=== PATIENT | male | born 1965 | race American Indian/Alaskan Native ===

== ENCOUNTER 2021-07-08 01:39 | Emergency (ER) | payer SELFPAY ==
[2021-07-08] MEDS ORDERED: ZIPRASIDONE MESYLATE 20 MG VIAL IM ONE (02:41)
--- NOTE | 2021-07-08 02:55 | Emergency Department Report ---
ED Psych HPI - General Chief Complaint: Psych Stated Complaint: MEDICAL Time Seen by Provider: 07/08/21 02:41 Source: patient Mode of arrival: Ambulatory - History of Present Illness Initial Comments: Patient is a 56-year-old male who presents emergency room for medical. Patient states his sister wants her to be checked out. Patient states his thoughts are racing. Patient denies suicidal homicidal ideations. Patient states that he is retired but is starting to work. Patient states that he has been running around and is looking for [employer]. Patient states that the family is always watching him. Patient denies recent travel. Patient denies recent international travel. Patient denies exposure to the novel coronavirus. Patient denies sick contacts. Patient denies fever and chills. Patient denies cough. Patient denies diarrhea. Patient denies coming in contact with anybody with symptoms of the novel coronavirus. MD Complaint: altered mental status -: Sudden Associated Psychiatric Symptoms: racing thoughts History of same: No Quality: constant Improves With: none Worsens With: none - Related Data Home Medications Medication Instructions Recorded Confirmed Last Taken Unobtainable 07/09/21 07/09/21 Unknown Allergies Allergy/AdvReac Type Severity Reaction Status Date / Time No Known Allergies Allergy Verified 07/09/21 08:12 ED Review of Systems ROS: Stated complaint: MEDICAL Other details as noted in HPI Comment: All other systems reviewed and negative ED Past Medical Hx - Past Medical History Previous Medical History?: Yes Hx Psychiatric Treatment: Yes - Surgical History Past Surgical History?: Yes - Family History Family history: no significant - Social History Smoking Status: Never Smoker Substance Use Type: None - Medications Home Medications: Home Medications Medication Instructions Recorded Confirmed Last Taken Type Unobtainable 07/09/21 07/09/21 Unknown History ED Physical Exam - General Limitations: Altered Mental Status General appearance: alert, in no apparent distress - Head Head exam: Present: atraumatic, normocephalic - Eye Eye exam: Present: normal appearance - ENT ENT exam: Present: mucous membranes moist - Neck Neck exam: Present: normal inspection - Respiratory Respiratory exam: Present: normal lung sounds bilaterally. Absent: respiratory distress - Cardiovascular Cardiovascular Exam: Present: regular rate, normal rhythm. Absent: systolic murmur, diastolic murmur, rubs, gallop - GI/Abdominal GI/Abdominal exam: Present: soft, normal bowel sounds - Rectal Rectal exam: Present: deferred - Extremities Exam Extremities exam: Present: normal inspection - Back Exam Back exam: Present: normal inspection - Neurological Exam Neurological exam: Present: alert, oriented X3 - Expanded Psychiatric Exam Expanded Focused psych exam: Present: pressured speech, echolalia, delusional, restlessness, flight of ideas - Skin Skin exam: Present: warm, dry, intact, normal color. Absent: rash ED Course Vital Signs 07/08/21 07/08/21 07/09/21 01:47 03:34 08:21 Temperature 97.5 F L 97.2 F L Pulse Rate 119 H 73 Respiratory 20 18 Rate Blood Pressure 156/84 120/72 Blood Pressure 120/72 [Left] O2 Sat by Pulse 99 100 98 Oximetry 07/09/21 07/10/21 07/10/21 19:31 07:47 08:43 Temperature 97.7 F Pulse Rate 73 Respiratory 20 Rate Blood Pressure Blood Pressure 147/106 [Left] O2 Sat by Pulse 97 100 100 Oximetry 07/10/21 07/11/21 07/11/21 19:48 01:42 07:55 Temperature 98.3 F 98.2 F 98.8 F Pulse Rate 119 H 102 H 74 Respiratory 20 18 20 Rate Blood Pressure Blood Pressure 135/94 139/90 137/67 [Left] O2 Sat by Pulse 98 96 99 Oximetry 07/11/21 07/11/21 07/11/21 08:50 19:50 20:28 Temperature 98.2 F Pulse Rate 119 H Respiratory 20 Rate Blood Pressure Blood Pressure 136/86 [Left] O2 Sat by Pulse 99 98 99 Oximetry 07/11/21 07/12/21 07/12/21 22:00 08:34 09:36 Temperature 98.7 F Pulse Rate 109 H 122 H Respiratory 18 Rate Blood Pressure Blood Pressure 128/72 [Left] O2 Sat by Pulse 97 97 Oximetry 07/12/21 12:33 Temperature Pulse Rate 97 H Respiratory Rate Blood Pressure Blood Pressure 124/60 [Left] O2 Sat by Pulse 98 Oximetry - Reevaluation(s) Reevaluation #1: Patient placed on a ER hold. 07/08/21 03:01 Reevaluation #2: Patient is agitated. Patient is moving nonstop. Patient was placed in seclusion room. Patient was given Geodon. [id number] done. 10/09/21 04:40 Reevaluation #3: Patient is medically cleared. Patient will remain in the ER as an ER hold. 07/08/21 04:48 ED Medical Decision Making - Lab Data Result diagrams: 07/08/21 03:23 07/08/21 03:23 - Medical Decision Making Patient is a 56-year-old male who presents emergency room for mental health complaints. Patient found to be in acute psychosis. Patient is tangential and pressured speech. Patient has multiple features of acute psychosis. Patient after evaluation became restless and agitated. Patient placed in seclusion and given Geodon. Patient had labs done which were essentially unremarkable except for renal insufficiency. Patient is medically cleared. Patient not require inpatient services. Patient spinal disposition will come from our psychiatry te am. Patient's final clearance will come from our psychiatry team. Patient remained in the ER as an ER hold until cleared by the psychiatry team. - Differential Diagnosis Medical clearance, acute psychosis, Critical care attestation.: If time is entered above; I have spent that time in minutes in the direct care of this critically ill patient, excluding procedure time. ED Disposition Clinical Impression: Renal insufficiency, Dehydration, Acute psychosis Disposition: [address] [place] [id number] Is pt being admited?: No Does the pt Need Aspirin: No Condition: Stable Referrals: PRIMARY CARE, [Primary Care Provider] - 3-5 Days Time of Disposition: 04:48
[2021-07-08 03:55] LABS: Hemoglobin 14.1 gm/dl (11.8-15.2)
[2021-07-08 03:56] LABS: Calcium 10.2 mg/dL (8.4-10.2)
[2021-07-08 04:05] LABS: Hematocrit 40.3 % (35.5-45.6); Mean Corpuscular HGB Conc 35 % (32-34); Mean Corpuscular Volume 101 fl (84-94); Platelet Count 298 K/mm3 (140-440); Red Cell Distribution Width 13.6 % (13.2-15.2)
[2021-07-08 08:05] LABS: Total Cells Counted 100
[2021-07-08 08:06] LABS: Anisocytosis Few; Macrocytosis Few
[2021-07-08 09:51] LABS: Bilirubin,Urine NEG (Negative); Blood,Urine NEG (Negative); Color,Urine Yellow (Yellow); Mucus,Urine FEW /HPF; Protein,Urine <15 mg/dL mg/dL (Negative); Urobilinogen,Urine < 2.0 mg/dL (<2.0); WBC,Urine < 1.0 /HPF (0.0-6.0)
[2021-07-08 09:58] LABS: Benzodiazepines Screen,Urine Negative; Cannabinoid Screen,Urine Negative; Cocaine Screen,Urine Negative; Methadone Screen,Urine Negative; Opiate Screen,Urine Negative
[2021-07-08 10:39] LABS: Amphetamine Screen,Urine Positive
--- NOTE | 2021-07-08 10:51 | Event Note ---
Date: 07/08/21 S: Patient reported to be exhibiting erratic behavior overnight. Patient refused vital signs this morning. O: Vital Signs - 8 hr 07/08/21 03:34 Temperature 97.2 F L Pulse Rate 73 Respiratory 18 Rate Blood Pressure 120/72 Blood Pressure 120/72 [Left] O2 Sat by Pulse 100 Oximetry A: Acute psychosis P: Awaiting evaluation/inpatient psych
--- NOTE | 2021-07-08 11:00 | Consultation ---
History of Present Illness - Reason for Consult Consult date: 07/08/21 Reason for consult: psychosis - History of Present Psychiatric Illness Per Nurse Note: Patient noted screaming making all sorts of sounds and yelling out profanities. Disorganized thoughts noted. Remains in seclusion. Q 15 min checks continues. Ed Paulson is a 56y/o patient who was seen today. He is acutely psychotic. His thoughts are disorganized. The patient is difficulty to follow and having flight of ideas. He tells me that he was "hearing stuff in my house, ceiling fan shon ing." He then says "my daughter told me she wants a purple dildo in her butt." He then says "I told her she must not be my daughter." He then says his daughter cut up his clothes. The patient says "my sister brought me here. She is an alpha well female." He is going on nonsensically. He says "Trump got bumped." He denies SI/HI PAST PSYCHIATRIC HISTORY: Diagnoses: Bipolar Suicide attempts or Self-harm behavior: Denies Prior psychiatric hospitalizations:Yes Substance Abuse history: Denies, but positive for amphetamines Previous psychiatric medications tried: Seroquel Outpatient treatment: Yes PAST MEDICAL HISTORY: None reported or document Family Psychiatric History: None reported or documented SOCIAL HISTORY Marital Status: Single Living Arrangements: with sister Employment Status: Unemployed Access to guns/weapons: Denies Education:some History of Abuse: Denies Legal History: unknown REVIEW OF SYSTEMS Constitutional: Negative for weight loss ENT: Negative for stridor Respiratory: Negative for cough or hemoptysis All other systems reviewed and are negative MENTAL STATUS EXAMINATION General Appearance and Behavior: Age appropriate, good hygiene, wearing appropriate clothes. Cooperation: Cooperative Psychomotor Behavior: Psychomotor normal Mood: Affect and affective range: Congruent with stated mood Thought Process: disorganized, flight of ideas Thought Content: hallucinations Speech: nonsensical Suicidal Ideation: Denies Homicidal Ideation:Denies Hallucinations: Yes Delusions: None illicited Impulse Control: Unimpaired Insight and Judgment: Poor Memory: Limited Attention: Distractible Orientation: a/o x 2 Assessment (1) Amphetamine Dependence (2)Bipolar disorder Current Visit: Yes Status: Acute Treatment Plan 1013 Olanzapine 5mg po daily Depakote DR 125mg po BID The patient to comply with previously prescribed medications Risks, benefits and alternatives of medications discussed with the patient, questions answered and consent obtained from patient. PSYCHOTHERAPY: Supportive psychotherapy provided MEDICAL: Per primary team DELIRIUM PRECAUTIONS: Please re-orient patient frequently, keep lights on during the day, and minimize benzodiazepines and opiates as these medications could worsen patient's confusion. 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 FOLLOW-UP: Will follow. Case staffed with Dr. Vann Please contact with any questions and/or concerns. Thank you for the consult. Medications and Allergies Allergies Allergy/AdvReac Type Severity Reaction Status Date / Time No Known Allergies Allergy Verified 07/08/21 01:49 Active Meds: Active Medications Diphenhydramine HCl (Diphenhydramine 50 Mg/Ml Vial) 50 mg IM Q6H PRN PRN Reason: Agitation Lorazepam (Lorazepam 2 Mg/Ml Vial) 2 mg IM Q8H PRN PRN Reason: Agitation Ziprasidone (Ziprasidone Mesylate 20 Mg Vial) 10 mg IM Q2H PRN PRN Reason: Agitation Mental Status Exam - Vital signs Last Vital Signs Temp 97.2 F L 07/08/21 03:34 Pulse 73 07/08/21 03:34 Resp 18 07/08/21 03:34 BP 120/72 07/08/21 03:34 Pulse Ox 100 07/08/21 03:34 Results Result Diagrams: 07/08/21 03:23 07/08/21 03:23 Abnormal lab results 07/08/21 07/08/21 07/08/21 Range/Units 03:23 03:23 03:23 WBC 11.5 H (4.5-11.0) K/mm3 MCV 101 H (84-94) fl MCH 35 H (28-32) pg MCHC 35 H (32-34) % Seg Neuts % (Manual) 76.0 H (40.0-70.0) % Seg Neutrophils # Man 8.7 H (1.8-7.7) K/mm3 Carbon Dioxide 21 L (22-30) mmol/L BUN 30 H (9-20) mg/dL Creatinine 1.7 H (0.8-1.3) mg/dL Glucose 104 H (75-100) mg/dL Salicylates < 0.3 L (2.8-20.0) mg/dL Acetaminophen (10.0-30.0) ug/mL 07/08/21 Range/Units 03:23 WBC (4.5-11.0) K/mm3 MCV (84-94) fl MCH (28-32) pg MCHC (32-34) % Seg Neuts % (Manual) (40.0-70.0) % Seg Neutrophils # Man (1.8-7.7) K/mm3 Carbon Dioxide (22-30) mmol/L BUN (9-20) mg/dL Creatinine (0.8-1.3) mg/dL Glucose (75-100) mg/dL Salicylates (2.8-20.0) mg/dL Acetaminophen 5.0 L (10.0-30.0) ug/mL All other labs normal.
[2021-07-08] MEDS: DIVALPROEX DR 125 MG TAB PO SCH ×2 (12:00→22:45)
[2021-07-08] MEDS: LORazepam 2 MG/ML VIAL IM PRN (13:30)
[2021-07-08] MEDS: diphenhydrAMINE 50 MG/ML VIAL IM PRN (13:35)
[2021-07-08] MEDS: ZIPRASIDONE MESYLATE 20 MG VIAL IM PRN (22:45)
[2021-07-09] MEDS: LORazepam 2 MG/ML VIAL IM PRN (05:22)
[2021-07-09] MEDS: DIVALPROEX DR 125 MG TAB PO SCH (10:08)
--- NOTE | 2021-07-09 12:03 | Progress Note ---
Subjective - Reason for Consult Consult date: 07/09/21 Reason for consult: psychosis - Chief Complaint Chief complaint: The patient was seen today, he is in the isolation room. I did not open the door but observed him from there. He is acting bizarrely. He is talking to himself. He defecated over the floor. Nursing staff says he's been jumping, making weird noises, and trying to pull the camera down. REVIEW OF SYSTEMS Constitutional: Negative for weight loss ENT: Negative for stridor Respiratory: Negative for cough or hemoptysis All other systems reviewed and are negative MENTAL STATUS EXAMINATION General Appearance and Behavior: Age appropriate, good hygiene, wearing appropriate clothes. Cooperation: Cooperative Psychomotor Behavior: Psychomotor normal Mood: Affect and affective range: Congruent with stated mood Thought Process: disorganized, flight of ideas Thought Content: hallucinations Speech: nonsensical Suicidal Ideation: Denies Homicidal Ideation:Denies Hallucinations: Yes Delusions: None illicited Impulse Control: Unimpaired Insight and Judgment: Poor Memory: Limited Attention: Distractible Orientation: a/o x 2 Assessment (1) Amphetamine Dependence (2)Bipolar disorder Current Visit: Yes Status: Acute Treatment Plan 1013 Increased Olanzapine 10mg po daily Increased Depakote DR 250mg po BID The patient to comply with previously prescribed medications Risks, benefits and alternatives of medications discussed with the patient, questions answered and consent obtained from patient. PSYCHOTHERAPY: Supportive psychotherapy provided MEDICAL: Per primary team DELIRIUM PRECAUTIONS: Please re-orient patient frequently, keep lights on during the day, and minimize benzodiazepines and opiates as these medications could worsen patient's confusion. TANNERY GUMMER: Defer to primary DISPOSITION: Recommend acute inpatient psychiatric hospitalization at this time. FOLLOW-UP: Will follow. Case staffed with Dr. Vann Please contact with any questions and/or concerns. Thank you for the consult. Mental Status Exam - Vital signs Last Vital Signs Temp 97.2 F L 07/08/21 03:34 Pulse 73 07/08/21 03:34 Resp 18 07/08/21 03:34 BP 120/72 07/08/21 03:34 Pulse Ox 98 07/09/21 08:21
--- NOTE | 2021-07-09 13:02 | Event Note ---
Date: 07/09/21 S: Patient has no complaints O: Vital signs stable; patient singing loudly in isolation room; nurses reported bizarre behavior from patient A: Bipolar disorder, methamphetamine dependence P: Continue 1013
[2021-07-09] MEDS: DIVALPROEX DR 250 MG TAB PO SCH (22:12)
[2021-07-10] MEDS: ZIPRASIDONE MESYLATE 20 MG VIAL IM PRN ×2 (03:33→19:45)
[2021-07-10] MEDS: diphenhydrAMINE 50 MG/ML VIAL IM PRN ×2 (03:33→19:44)
[2021-07-10] MEDS: DIVALPROEX DR 250 MG TAB PO SCH ×2 (09:46→22:44)
--- NOTE | 2021-07-10 10:07 | Emergency Department Report ---
Blank Doc - Documentation Documentation: Patient has been accepted at [facility]. 1013 will be maintained.
--- NOTE | 2021-07-10 10:26 | Progress Note ---
Subjective - Reason for Consult Consult date: 07/10/21 Reason for consult: psychosis - Chief Complaint Chief complaint: The patient was seen today, he is out of isolation and more calm today. He is hyperverbal, and having flight of ideas. He's cooperative and pleasant, despite of. He denies SI/HI or hallucinations, but he is heard talking out loud to someone who is not there. He is also making bizarre sounds. REVIEW OF SYSTEMS Constitutional: Negative for weight loss ENT: Negative for stridor Respiratory: Negative for cough or hemoptysis All other systems reviewed and are negative MENTAL STATUS EXAMINATION General Appearance and Behavior: Age appropriate, good hygiene, wearing appropriate clothes. Cooperation: Cooperative Psychomotor Behavior: Psychomotor normal Mood: Affect and affective range: Congruent with stated mood Thought Process: disorganized, flight of ideas Thought Content: hallucinations Speech: nonsensical Suicidal Ideation: Denies Homicidal Ideation:Denies Hallucinations: Yes Delusions: None illicited Impulse Control: Unimpaired Insight and Judgment: Poor Memory: Limited Attention: Distractible Orientation: a/o x 2 Assessment (1) Amphetamine Dependence (2)Bipolar disorder Current Visit: Yes Status: Acute Treatment Plan 1013 Increased Olanzapine 15mg po daily The patient to comply with previously prescribed medications Risks, benefits and alternatives of medications discussed with the patient, questions answered and consent obtained from patient. PSYCHOTHERAPY: Supportive psychotherapy provided MEDICAL: Per primary team DELIRIUM PRECAUTIONS: Please re-orient patient frequently, keep lights on during the day, and minimize benzodiazepines and opiates as these medications could worsen patient's confusion. 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 FOLLOW-UP: Will follow. Case staffed with Dr. Vann Please contact with any questions and/or concerns. Thank you for the consult. Mental Status Exam - Vital signs Last Vital Signs Temp 97.7 F 07/10/21 07:47 Pulse 73 07/10/21 07:47 Resp 20 07/10/21 07:47 BP 147/106 07/10/21 07:47 Pulse Ox 100 07/10/21 08:43
[2021-07-10] MEDS: LORazepam 2 MG/ML VIAL IM PRN (14:51)
[2021-07-10] MEDS ORDERED: WATER FOR INJ Sterile (PF) 10 ML ONE (19:59)
--- NOTE | 2021-07-10 20:23 | Event Note ---
Date: 07/11/21 [id number] evaluation performed. Patient placed in seclusion for aggressive behavior. He is not responding to verbal de-escalation techniques or show of force. When I evaluated the patient, he was standing upright, talking to me, moving 4 extremities, not in any respiratory distress. Hospital protocols for seclusion will follow. Patient eventually demonstrated self controlling behavior, and seclusion was discontinued.
[2021-07-11] MEDS: diphenhydrAMINE 50 MG/ML VIAL IM PRN (05:36)
[2021-07-11] MEDS: LORazepam 2 MG/ML VIAL IM PRN ×2 (05:36→16:53)
[2021-07-11] MEDS: DIVALPROEX DR 250 MG TAB PO SCH ×2 (09:42→21:55)
--- NOTE | 2021-07-11 10:32 | Event Note ---
Date: 07/11/21 No new event awaiting mental health evaluation
--- NOTE | 2021-07-11 11:40 | Progress Note ---
Subjective - Reason for Consult Consult date: 07/11/21 Reason for consult: psychosis - Chief Complaint Chief complaint: The patient was seen today, he is much more calm today, but nursing staff states was banging on jones and talking loudly. The patient at times appeared to be talking to himself. He denies SI/HI. REVIEW OF SYSTEMS Constitutional: Negative for weight loss ENT: Negative for stridor Respiratory: Negative for cough or hemoptysis All other systems reviewed and are negative MENTAL STATUS EXAMINATION General Appearance and Behavior: Age appropriate, good hygiene, wearing appropriate clothes. Cooperation: Cooperative Psychomotor Behavior: Psychomotor normal Mood: Affect and affective range: Congruent with stated mood Thought Process: disorganized, flight of ideas Thought Content: hallucinations Speech: nonsensical Suicidal Ideation: Denies Homicidal Ideation:Denies Hallucinations: Yes Delusions: None illicited Impulse Control: Unimpaired Insight and Judgment: Poor Memory: Limited Attention: Distractible Orientation: a/o x 2 Assessment (1) Amphetamine Dependence (2)Bipolar disorder Current Visit: Yes Status: Acute Treatment Plan 1013 Olanzapine 15mg po daily The patient to comply with previously prescribed medications Risks, benefits and alternatives of medications discussed with the patient, questions answered and consent obtained from patient. PSYCHOTHERAPY: Supportive psychotherapy provided MEDICAL: Per primary team DELIRIUM PRECAUTIONS: Please re-orient patient frequently, keep lights on during the day, and minimize benzodiazepines and opiates as these medications could worsen patient's confusion. 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 FOLLOW-UP: Will follow. Case staffed with Dr. Vann Please contact with any questions and/or concerns. Thank you for the consult. Mental Status Exam - Vital signs Last Vital Signs Temp 98.8 F 07/11/21 07:55 Pulse 74 07/11/21 07:55 Resp 20 07/11/21 07:55 BP 137/67 07/11/21 07:55 Pulse Ox 99 07/11/21 08:50
[2021-07-12] MEDS: LORazepam 2 MG/ML VIAL IM PRN (07:30)
--- NOTE | 2021-07-12 09:20 | Progress Note ---
Subjective - Reason for Consult Consult date: 07/12/21 Reason for consult: psychosis - Chief Complaint Chief complaint: The patient was seen today. He appears worse than he was yesterday. He is hyperverbal and having flight of ideas. The nursing staff says the patient has been psychotic, disruptive and had to be medicated. He denies SI/HI or hallucinations. REVIEW OF SYSTEMS Constitutional: Negative for weight loss ENT: Negative for stridor Respiratory: Negative for cough or hemoptysis All other systems reviewed and are negative MENTAL STATUS EXAMINATION General Appearance and Behavior: Age appropriate, good hygiene, wearing appropriate clothes. Cooperation: Cooperative Psychomotor Behavior: Psychomotor normal Mood: Affect and affective range: Congruent with stated mood Thought Process: disorganized, flight of ideas Thought Content: hallucinations Speech: nonsensical Suicidal Ideation: Denies Homicidal Ideation:Denies Hallucinations: Yes Delusions: None illicited Impulse Control: Unimpaired Insight and Judgment: Poor Memory: Limited Attention: Distractible Orientation: a/o x 2 Assessment (1) Amphetamine Dependence (2)Bipolar disorder Current Visit: Yes Status: Acute Treatment Plan 1013 Increase Olanzapine 20mg po daily Increase Depakote DR 250mg po TID Start Vistaril 50mg po BID Risks, benefits and alternatives of medications discussed with the patient, questions answered and consent obtained from patient. PSYCHOTHERAPY: Supportive psychotherapy provided MEDICAL: Per primary team DELIRIUM PRECAUTIONS: Please re-orient patient frequently, keep lights on during the day, and minimize benzodiazepines and opiates as these medications could worsen patient's confusion. NURSE FIRST AID: Defer to primary DISPOSITION: Recommend acute inpatient psychiatric hospitalization at this time. FOLLOW-UP: Will follow. Case staffed with Dr. Vann Please contact with any questions and/or concerns. Thank you for the consult. Mental Status Exam - Vital signs Last Vital Signs Temp 98.7 F 07/12/21 08:34 Pulse 122 H 07/12/21 08:34 Resp 18 07/12/21 08:34 BP 128/72 07/12/21 08:34 Pulse Ox 97 07/12/21 08:34
[2021-07-12 12:34] VITALS: BP 124/60
--- NOTE | 2021-07-12 12:34 | Emergency Department Report ---
Blank Doc - Documentation Documentation: 56-year-old male currently here on a 1013 Nurses and notes were reviewed Patient continues to exhibiting agitated and excited behavior as per notes Patient noted to be tachycardic but nurse reports that he was actively exercising at the time. After ED treatment heart rate decreased to 97 UDS also positive for amphetamine Patient medically or by previous provider P.o. psychiatric medications initiated and being managed mental health Patient awaiting placement
[2021-07-12] MEDS ORDERED: DIVALPROEX DR 250 MG TAB PO SCH (14:00)
== END 2021-07-12 18:21 ==
LOC: EEVIPCON 01:39 → ED 01:39
DX: F23 Brief psychotic disorder (principal); E86.0 Dehydration; N28.9 Disorder of kidney and ureter, unspecified; Z20.822 Contact with and (suspected) exposure to COVID-19
CPT/HCPCS: 36415; 80048; 80307; 81001; 85007; 85025; 96372; 99285; J1200; J2060; J3486; Q0177; U0003; 80320; 99284; G0480